=== PATIENT | female | born 2005 | race Two or more races ===

== ENCOUNTER 2024-08-16 06:29 | Inpatient (IN) | payer OTHER ==
[~2024-08-16] VITALS: Ht 160 cm; Wt 85.0 kg
--- NOTE | 2024-08-16 06:53 | ED.PDOC ---
GI ASSESSMENT HPI Comments 19 year old female presents to the ED with chief complaint of abdominal pain. Patient reports that she has been experiencing 10/10 diffuse abdominal pain since Wednesday with associated nausea and vomiting. Patient relays that she is unsure if it is from something she ate as she has not eaten well since last . Patient denies any diarrhea, fever, chills, chest pain, dizziness, or headache. Time Seen by MD: 06:53 Allergies: Coded Allergies: NO KNOWN ALLERGIES (Unverified , 08/16/24) Past Medical History PAST MEDICAL HISTORY: Denies Surgical History: Denies all surgeries CONSTRUCTION ECONOMIST History: No Pertinent CONSTRUCTION ECONOMIST History Family History Family History: Reviewed,noncontributory to illness Social History Smoker: Non-Smoker Alcohol: Denies ETOH Use Drugs: Denies Drug Use Lives In: Home Constitutional: denies: chills, diaphoresis, fatigue, fever, malaise, sweats, weakness, others EENTM: denies: blurred vision, double vision, ear bleeding, ear discharge, ear drainage, ear pain, ear ringing, eye pain, eye redness, hearing loss, mouth pain , mouth swelling, nasal discharge, nose bleeding, nose congestion, nose pain, photophobia, tearing, throat pain, throat swelling, voice changes, others Respiratory: denies: cough, hemoptysis, orthopnea, SOB at rest, shortness of breath, SOB with excertion, stridor, wheezing, others Cardiovascular: denies: chest pain, dizzy spells, diaphoresis, Dyspnea on exertion, edema, irregular heart beat, left arm pain, lightheadedness, palpitations, PND, syncope, others Gastrointestinal: reports: abdominal pain, nausea, vomiting; denies: abdomen distended, blood streaked bowels, constipated, diarrhea, dysphagia, difficulty swallowing, hematemesis, melena, poor appetite, poor fluid intake, rectal bleeding, rectal pain, others Genitourinary: denies: abnormal vagina bleeding, burning, dyspareunia, dysuria, flank pain, frequency, hematuria, incontinence, pain, , vagina discharge, urgency, others Neurological: denies: dizziness, fainting, headache, left sided numbness, left sided weakness, numbness, paresthesia, pre-existing deficit, right sided numbness, right sided weakness, seizure, speech problems, tingling, tremors, weakness, others Musculoskeletal: denies: back pain, gout, joint pain, joint swelling, muscle pain, muscle stiffness, neck pain, others Integumetry: denies: bruises, change in color, change in hair/nails, dryness, laceration, lesions, lumps, rash, wounds, others Allergic/Immunocompromised: denies: Difficulty Healing, Frequent Infections, Hives, Itching, others Hematologic/Lymphatic: denies: anemia, blood clots, easy bleeding, easy bruising, swollen glands, others Endocrine: denies: excessive hunger, excessive sweating, excessive thirst, excessive urination, flushing, intolerance to cold, intolerance to heat, unexplained weight gain, unexplained weight loss, others Psychiatric: denies: anxiety, bipolar disorder, depression, hopeless, panic disorder, schizophrenia, sleepless, suicidal, others All Other Systems: Reviewed and Negative Physical Exam General Appearance: Moderate Distress, Normal HEENT: Normal ENT Inspection, PERRL/EOMI Neck: Full Range of Motion, Non-Tender, Normal, Normal Inspection Respiratory: Chest Non-Tender, Lungs Clear, No Accessory Muscle Use, No Respiratory Distress, Normal Breath Sounds Cardiovascular: No Edema, No JVD, No Murmur, No Gallop, Normal Peripheral Pulses, Regular Rate/Rhythm Breast Exam: Deferred Gastrointestinal: No Organomegaly, No Pulsatile Mass, Normal Bowel Sounds, Soft Genitalia: Deferred Pelvic: Deferred Rectal: Deferred Extremities: No calf tenderness, Normal capillary refill, Normal inspection, Normal range of motion, Non-tender, No pedal edema Musculoskeletal : Apperance: Normal Neurologic: Alert, 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 Was a procedure done?: No GI differential Dx Differential Diagnosis: Constipation, Diverticular disease, Esophagitis, Gastritis/PUD, Gastroenteritis X-Ray, Labs, Meds, VS Vital Signs Date Time Temp Pulse Resp B/P (MAP) Pulse Ox O2 Delivery O2 Flow Rate FiO2 08/16/24 08:15 98.7 68 13 127/68 (87) 100 98.7 11/6/24 07:50 70 18 134/72 11/6/24 07:22 70 18 134/72 08/16/24 07:20 70 18 99 Room Air* 0 21 08/16/24 07:20 98.5 70 18 134/72 (92) 99 98.5 08/16/24 06:53 98.7 85 20 137/95 (109) 99 Lab Test 08/16/24 07:25 Range/Units Sodium Level 138 136-145 mmol/L Potassium Level 2.9 L 3.5-5.1 mmol/L Chloride Level 103 98-107 mmol/L Carbon Dioxide Level 24 20-31 mmol/L Anion Gap 11 5-15 Blood Urea Nitrogen 6 L 9-23 mg/dL Creatinine 0.84 0.550-1.02 mg/dL Glomerular Filtration Rate Calc 101 >90 mL/min BUN/Creatinine Ratio 7.1 L 10.0-20.0 Serum Glucose 81 74-106 mg/dL Calcium Level 9.8 8.7-10.4 mg/dL Total Bilirubin 1.2 H 0.2-1.0 mg/dL Aspartate Amino Transferase (AST) 15 13-40 U/L Alanine Aminotransferase (ALT) 17 7-40 U/L Alkaline Phosphatase 72 46-116 U/L Total Protein 8.4 H 5.7-8.2 g/dL Albumin 4.7 3.2-4.8 g/dL Current Medications Medications (Trade) Dose Ordered Sig/Kristin Route Start Time Stop Time Status Last Admin Ondansetron HCl (Zofran) 4 mg ONCE ONCE IV 08/16/24 07:15 08/16/24 07:16 DC 08/16/24 07:21 Sodium Chloride 1,000 ml @ 1,000 mls/hr Q1H ONCE IVB 08/16/24 07:15 08/16/24 08:14 DC 08/16/24 07:21 Morphine Sulfate 4 mg ONCE ONCE IV 08/16/24 07:15 08/16/24 07:16 DC 08/16/24 07:22 Potassium Chloride 100 ml @ 50 mls/hr ONCE ONCE IV 08/16/24 08:15 08/16/24 10:14 08/16/24 08:38 Patient alert. Complaining of abdominal pain. Vitals stable. Answering all questions. Establish intravenous access. Was given fluids. Was given pain medication. Potassium is low. Was given potassium. Reviewed her history. Explained to the patient. Continue cardiac monitoring. CT Abd/Pel: Findings: Lung Bases: No acute or significant lung base finding. Normal heart size. No pleural or pericardial effusion. Liver: The liver is normal in size. Focal low attenuating lesion at the falciform ligament compatible with focal fatty deposition. Gallbladder and Biliary Tree: Gallbladder contains hyperdense material likely related to contrast excretion from prior intravenous injection. No biliary ductal dilatation. Spleen: Unremarkable Pancreas: The pancreas is grossly normal in appearance. Adrenal Glands: Unremarkable Kidneys: Kidneys are grossly normal without calculi or hydronephrosis. GI Tract: The stomach is grossly normal in appearance. The small bowel is normal in caliber. There is wall thickening of the ascending colon. Normal caliber appendix. Peritoneal cavity: No pneumoperitoneum. No ascites. Lymphadenopathy: No mesenteric, retroperitoneal or periportal lymphadenopathy. Abdominal Wall and Mesentery: Unremarkable. Vasculature: The visualized abdominal aorta is normal in size and caliber. Evaluation of abdominal and pelvic vessels is limited due to lack of intravenous contrast. Pelvic Organs: Uterus and ovaries are unremarkable. Urinary Bladder: Grossly unremarkable for degree of distention. Musculoskeletal: No aggressive focal bony lesions, acute fractures or dislocation. Soft tissues: Unremarkable IMPRESSION: 1. Mild wall thickening of the ascending colon which may reflect colitis in the appropriate clinical setting. 2. Focal fatty deposition in the falciform ligament. Images Reviewed?: Images reviewed and evaluated by me Time of 1ST Reevaluation: 07:53 Reevaluation 1ST: Unchanged Patient Education/Counseling: Diagnosis, Treatment, Prognosis, Need For Follow Up Family Education/Counseling: No Family Present Departure 1 Departure Time of Disposition: 08:01 Impression: Primary Impression: Acute abdominal pain Additional Impressions: Gastroenteritis Hypokalemia Disposition: ADMITTED INPATIENT Admit to: Med Surg Condition: Guarded Critical Care Note Critical Care Time?: Yes (45 min-critical care time only) Stability Stability form required: No Heart Score Heart Score: Heart Score Response (Comments) Value History N/A 0 EKG N/A 0 Age N/A 0 Risk Factors N/A 0 Troponin N/A 0 Total 0 I personally scribed for HENRIETTA CINTRON MD ([email or web address]) on 08/16/24 at 06:53. Electronically submitted by Evin Javier ([email or web address]). I personally scribed for HENRIETTA CINTRON MD ([email or web address]) on 08/16/24 at 09:43. Electronically submitted by Evin Javier ([email or web address]). HENRIETTA CINTRON MD Aug 16, 2024 06:53
[2024-08-16 07:20] VITALS: PULSE 70; RESP 18; O2SAT 99
[2024-08-16] MEDS: ONDANSETRON HCL 4 MG/2 ML VIAL IV ONE (07:21)
[2024-08-16] MEDS: SODIUM CHLORIDE 0.9% 1,000 ML IVB ONE (07:21)
[2024-08-16] MEDS: MORPHINE SULFATE 4 MG/ML SYR/VIAL IV ONE (07:22)
[2024-08-16 07:51] LABS: Alanine Aminotransferase 17 U/L (7-40); Albumin 4.7 g/dL (3.2-4.8); Alkaline Phosphatase 72 U/L (46-116); Anion Gap 11 (5-15); Aspartate Aminotransferase 15 U/L (13-40); BUN/Creatinine Ratio 7.1 (10.0-20.0); Blood Urea Nitrogen 6 mg/dL (9-23); Calcium 9.8 mg/dL (8.7-10.4); Carbon Dioxide 24 mmol/L (20-31); Chloride 103 mmol/L (98-107); Glucose 81 mg/dL (74-106); Potassium 2.9 mmol/L (3.5-5.1); Sodium 138 mmol/L (136-145)
[2024-08-16 07:52] LABS: Bilirubin, Total 1.2 mg/dL (0.2-1.0); Total Protein 8.4 g/dL (5.7-8.2)
[2024-08-16] MEDS: POTASSIUM CHL 20MEQ/100ML 100 ML IV ONE (08:38)
--- NOTE | 2024-08-16 09:06 | DVH ---
Exam: CT CT AB PEL WO CON-NO ORAL OR IV History: Colitis Comparison Study: None available at time of dictation. TECHNIQUE: Multidetector CT of the abdomen and pelvis was performed from lung bases to ischial tubero sities. Imaging was performed without IV contrast using axial images. Coronal and sagittal reformats were obtained from the axial data set by the technologist. Radiation Dose Information: CT Dose: CTDI volume is 12.65 mGy. Dose-length product is 672.95 mGy*cm FINDINGS: Evaluation of solid organs is limited due to lack of intravenous contrast use. Findings: Lung Bases: No acute or significant lung base finding. Normal heart size. No pleural or pericardial effusion. Liver: The liver is normal in size. Focal low attenuating lesion at the falciform ligament compatibl e with focal fatty deposition. Gallbladder and Biliary Tree: Gallbladder contains hyperdense material likely related to contrast exc retion from prior intravenous injection. No biliary ductal dilatation. Spleen: Unremarkable Pancreas: The pancreas is grossly normal in appearance. Adrenal Glands: Unremarkable Kidneys: Kidneys are grossly normal without calculi or hydronephrosis. GI Tract: The stomach is grossly normal in appearance. The small bowel is normal in caliber. There is wall thickening of the ascending colon. Normal caliber appendix. Peritoneal cavity: No pneumoperitoneum. No ascites. Lymphadenopathy: No mesenteric, retroperitoneal or periportal lymphadenopathy. Abdominal Wall and Mesentery: Unremarkable. Vasculature: The visualized abdominal aorta is normal in size and caliber. Evaluation of abdominal a nd pelvic vessels is limited due to lack of intravenous contrast. Pelvic Organs: Uterus and ovaries are unremarkable. Urinary Bladder: Grossly unremarkable for degree of distention. Musculoskeletal: No aggressive focal bony lesions, acute fractures or dislocation. Soft tissues: Unremarkable IMPRESSION: 1. Mild wall thickening of the ascending colon which may reflect colitis in the appropriate clinical setting. 2. Focal fatty deposition in the falciform ligament. Radiation optimization: All CT scans at this facility use at least one of these dose optimization lisa hniques: automated exposure control mA and/or kV adjustment per patient size (includes targeted exam s where dose is matched to clinical indication) or iterative reconstruction.
[2024-08-16 12:06] LABS: Basophils # (auto) 0 10 ^3/uL (0-0.2); Basophils % (auto) 0.2 % (0.0-2.0); Eosinophils # (auto) 0 10 ^3/uL (0-0.8); Hematocrit 36.2 % (36.0-46.0); Hemoglobin 11.9 g/dL (12.2-16.2); Mean Corpuscular Hemoglobin 28.3 pg (28.0-32.0); Mean Corpuscular Hgb Conc. 32.8 g/dL (32.0-36.0); Mean Corpuscular Volume 86.3 fL (80.0-100.0); Monocytes # (auto) 0.5 10 ^3/uL (0-1.3); Monocytes % (auto) 4.3 % (0.0-12.0); Neutrophils # (auto) 10.8 10 ^3/uL (1.6-8.6); Neutrophils % (auto) 87.5 % (37.0-80.0); Platelet Count (auto) 243 10^3/uL (140-450); Red Cell Distribution Width 15.1 % (11.8-14.3); White Blood Cell 12.4 10^3/uL (4.4-10.8)
--- NOTE | 2024-08-16 12:08 | DVHHP2 ---
History of Present Illness Reason for Visit: Abdominal pain History of Present Illness Joanne Galvez is a 19-year-old female with no significant past medical history who comes in with complaints of abdominal pain. Patient states that her abdominal pain, with associated nausea and vomiting started on Wednesday08/12/2024. She has not been able to keep any food or fluids down since Wednesday. She went to [facility] on Wednesday, with no resolution, and then to urgent care on Wednesday with no resolution. Her Mom is bringing her in today because she continues to have the abdominal pain, nausea, and vomiting, she has not been able to get out of bed, or eat. Past Surgical History: None Family History: None Smoke: No ALCOHOL: rare Drugs: Marijuana Lives: with Family Domestic Violence: Neg Review of Systems Constitutional: No: Fever, Chills, Sweats, Weakness, Malaise, Other Eyes: No: Pain, Vision change, Conjunctivae inflammation, Eyelid inflammation, Other, Redness ENT: No: Ear pain, Ear discharge, Nose pain, Nose discharge, Nose congestion, Mouth pain, Mouth swelling, Throat pain, Throat swelling, Other Respiratory: No: Cough, Dry, Shortness of breath, SOB with excertion, Wheezing, Hemoptysis, Pleuritic Pain, Sputum, Wheezing, Other Cardiovascular: No: Chest Pain, Palpitations, Orthopnea, Paroxysmal Noc. Dyspnea, Edema, Lt Headedness, Other Gastrointestinal: Nausea, Vomiting, Abdominal Pain; No: Diarrhea, Constipation, Melena, Hematochezia, Other Musculoskeletal: No: other, neck pain, shoulder pain, arm pain, back pain, hand pain, leg pain, foot pain Skin: No: Rash, Lesions, Jaundice, Bruising, Other Neurological: No: Weakness, Numbness, Incoordination, Change in speech, Confu gonzalez, Seizures, Other Allergies: Coded Allergies: NO KNOWN ALLERGIES (Unverified , 08/16/24) Exam Vital Signs Vital Signs Date Time Temp Pulse Resp B/P (MAP) Pulse Ox O2 Delivery O2 Flow Rate FiO2 08/16/24 10:00 71 20 132/61 (84) 100 08/16/24 08:15 98.7 98.7 08/16/24 07:20 Room Air* 0 21 General Appearance: Alert, Oriented X3, mild distress Respiratory: Clear to auscultation, Normal air movement Cardiovascular: Regular rate, Normal S1, Normal S2, No murmurs Abdominal: Other (Diffuse abdominal pain, nausea, and vomiting) Extremities: No clubbing, No cyanosis, No edema Skin: No rashes, No breakdown, No significant lesion Neuro: Normal gait, Normal speech, Strength at 5/5 X4 ext Psych/Mental Status: Mental status NL, Mood NL Labs/Xrays Labs Test 08/16/24 11:47 08/16/24 10:09 08/16/24 07:25 Range/Units Sodium Level 138 136-145 mmol/L Potassium Level 2.9 L 3.5-5.1 mmol/L Chloride Level 103 98-107 mmol/L Carbon Dioxide Level 24 20-31 mmol/L Anion Gap 11 5-15 Blood Urea Nitrogen 6 L 9-23 mg/dL Creatinine 0.84 0.550-1.02 mg/dL Glomerular Filtration Rate Calc 101 >90 mL/min BUN/Creatinine Ratio 7.1 L 10.0-20.0 Serum Glucose 81 74-106 mg/dL Calcium Level 9.8 8.7-10.4 mg/dL Total Bilirubin 1.2 H 0.2-1.0 mg/dL Aspartate Amino Transferase (AST) 15 13-40 U/L Alanine Aminotransferase (ALT) 17 7-40 U/L Alkaline Phosphatase 72 46-116 U/L Total Protein 8.4 H 5.7-8.2 g/dL Albumin 4.7 3.2-4.8 g/dL Exam: CT CT AB PEL WO CON-NO ORAL OR IV FINDINGS: Evaluation of solid organs is limited due to lack of intravenous contrast use. Findings: Lung Bases: No acute or significant lung base finding. Normal heart size. No pleural or pericardial effusion. Liver: The liver is normal in size. Focal low attenuating lesion at the falciform ligament compatible with focal fatty deposition. Gallbladder and Biliary Tree: Gallbladder contains hyperdense material likely related to contrast excretion from prior intravenous injection. No biliary ductal dilatation. Spleen: Unremarkable Pancreas: The pancreas is grossly normal in appearance. Adrenal Glands: Unremarkable Kidneys: Kidneys are grossly normal without calculi or hydronephrosis. GI Tract: The stomach is grossly normal in appearance. The small bowel is normal in caliber. There is wall thickening of the ascending colon. Normal caliber nitesh endix. Peritoneal cavity: No pneumoperitoneum. No ascites. Lymphadenopathy: No mesenteric, retroperitoneal or periportal lymphadenopathy. Abdominal Wall and Mesentery: Unremarkable. Vasculature: The visualized abdominal aorta is normal in size and caliber. Evaluation of abdominal and pelvic vessels is limited due to lack of intravenous contrast. Pelvic Organs: Uterus and ovaries are unremarkable. Urinary Bladder: Grossly unremarkable for degree of distention. Musculoskeletal: No aggressive focal bony lesions, acute fractures or dislocation. Soft tissues: Unremarkable IMPRESSION: 1. Mild wall thickening of the ascending colon which may reflect colitis in the appropriate clinical setting. 2. Focal fatty deposition in the falciform ligament. Assessment/Plan Assessment/Plan Assessment: Dehydration, severe, UTI, Gastritis, Hypokalemia, Possible colitis, Plan: Admit to Med-Surg, IV antibiotics, IV hydration, Manage/Monitor electrolytes, Consider GI consult if symptoms do not improve, Plan discussed with: Patient My Orders Orders - LOUISE PATEL Procedure Category Date Status Time Complete Blood Count LAB 08/16/24 In Process 10:38 Admit ADMIT 08/16/24 Verified 11:55 Code Status CODE 08/16/24 Verified 11:55 0.9% Ns 1000 Ml PHA 08/16/24 Verified 12:00 Hydrocodone-Acet PHA 08/16/24 Verified 5/325mg Tab (Roby 12:00 Ondansetron Hcl PHA 08/16/24 Verified (Zofran) 12:00 Complete Blood Count LAB 08/17/24 Verified 04:00 Comprehensive LAB 08/17/24 Verified Metabolic Panel 04:00 Condition: Serious SAMIRA 08/16/24 Verified 11:55 Acetaminophen Tablet PHA 08/16/24 Verified (Tylenol Tablet) 12:00 Clear Liq Diet DIET 08/16/24 Verified Lunch Magnesium LAB 08/16/24 Verified 11:55 Potassium LAB 08/16/24 Verified 11:55 Date of Service: Aug 16, 2024 Billing Provider: LOUISE PATEL Common Visit Codes: [id number] INP/OBS CARE (MOD) LOUISE PATEL Aug 16, 2024 12:08
[2024-08-16] MEDS: SODIUM CHLORIDE 0.9% 1,000 ML IV SCH (12:28)
[2024-08-16 12:46] LABS: Potassium 3.8 mmol/L (3.5-5.1)
[2024-08-16 16:11] VITALS: BP 108/69; PULSE 76; RESP 20; TEMP 98.4; O2SAT 100
[2024-08-16 16:26] LABS: Urine Bacteria FEW /hpf (None Seen); Urine Blood 2+ /uL (Negative); Urine Clarity Turbid (Clear); Urine Color Yellow (Yellow); Urine Mucus FEW (None Seen); Urine Protein, UAD TRACE (Negative); Urine Specific Gravity 1.022 (1.001-1.035); Urine Urobilinogen 2 mg/dL (Negative); Urine WBC 5 /hpf (0 - 5); Urine pH 6.5 (5.0-9.0)
[2024-08-16 16:57] VITALS: BP 124/56; PULSE 72; RESP 18; TEMP 97.9; O2SAT 99
[2024-08-16 20:00] VITALS: PULSE 81; RESP 18; O2SAT 90
[2024-08-16] MEDS: cefTRIAXone 1GM/50ML D5W 50 ML IV ONE (20:35)
[2024-08-16 20:38] VITALS: BP 125/68; PULSE 81; RESP 18; TEMP 97.9; O2SAT 90
[2024-08-16] MEDS: MAGNESIUM SULFATE 1GM/100ML 100 ML IV SCH (21:54)
[2024-08-16] MEDS: metroNIDAZOLE 500MG/100ML 100 ML IV SCH (23:30)
[2024-08-17] VITALS (7 sets, daily range): BP systolic 108–138; BP diastolic 54–83; PULSE 61–79; RESP 16–20; TEMP 97.3–98.8; O2SAT 97–99
[2024-08-17] MEDS: ONDANSETRON HCL 4 MG/2 ML VIAL IV PRN (04:59)
[2024-08-17] MEDS: METOCLOPRAMIDE HCL 5MG/ml INJ 2ml VIAL IV PRN (05:39)
[2024-08-17 06:00] LABS: Basophils # (auto) 0 10 ^3/uL (0-0.2); Basophils % (auto) 0.3 % (0.0-2.0); Eosinophils # (auto) 0.1 10 ^3/uL (0-0.8); Eosinophils % (auto) 0.7 % (0.0-7.0); Hematocrit 38.2 % (36.0-46.0); Hemoglobin 12.5 g/dL (12.2-16.2); Lymphocytes % (auto) 20.6 % (10.0-50.0); Mean Corpuscular Hemoglobin 28.7 pg (28.0-32.0); Mean Corpuscular Hgb Conc. 32.9 g/dL (32.0-36.0); Mean Corpuscular Volume 87.3 fL (80.0-100.0); Monocytes # (auto) 0.8 10 ^3/uL (0-1.3); Monocytes % (auto) 8.7 % (0.0-12.0); Neutrophils # (auto) 6.8 10 ^3/uL (1.6-8.6); Neutrophils % (auto) 69.7 % (37.0-80.0); Nucleated Red Blood Cells % 0.1 %; Platelet Count (auto) 244 10^3/uL (140-450); Red Blood Cells 4.37 10^6/uL (4.0-5.20); Red Cell Distribution Width 14.7 % (11.8-14.3); White Blood Cell 9.7 10^3/uL (4.4-10.8)
[2024-08-17 06:13] LABS: Alanine Aminotransferase 13 U/L (7-40); Albumin 4.4 g/dL (3.2-4.8); Alkaline Phosphatase 64 U/L (46-116); Anion Gap 10 (5-15); Aspartate Aminotransferase 14 U/L (13-40); Calcium 9.2 mg/dL (8.7-10.4); Carbon Dioxide 25 mmol/L (20-31); Chloride 105 mmol/L (98-107); Glucose 75 mg/dL (74-106); Potassium 2.9 mmol/L (3.5-5.1); Sodium 140 mmol/L (136-145)
[2024-08-17 06:14] LABS: Bilirubin, Total 1.1 mg/dL (0.2-1.0); Total Protein 7.4 g/dL (5.7-8.2)
[2024-08-17 06:15] LABS: BUN/Creatinine Ratio 6.4 (10.0-20.0); Blood Urea Nitrogen < 5 mg/dL (9-23)
[2024-08-17] MEDS: HYDROcodone-ACET 5/325MG TAB PO PRN (06:16)
[2024-08-17] MEDS: cefTRIAXone 1GM/50ML D5W 50 ML IV SCH (10:10)
--- NOTE | 2024-08-17 11:20 | DVHPN2 ---
Subjective The patient is seen and examined at bedside. Still complaint of abdominal pain. Patient is still vomiting five times overnight and could not keep anything down. Reviewed: Care Plan, H&P, Labs, Medications, Previous Orders, Radiology Changes from previous H/P or p: No Changes Eyes: No Pain, No Vision change, No Conjunctivae inflammation, No Eyelid inflammation, No Other, No Redness ENT: No Ear pain, No Ear discharge, No Nose pain, No Nose discharge, No Nose congestion, No Mouth pain, No Mouth swelling, No Throat pain, No Throat swelling, No Other Cardiovascular: No Chest Pain, No Palpitations, No Orthopnea, No Paroxysmal Noc. Dyspnea, No Edema, No Lt Headedness, No Other Respiratory: No Cough, No Dry, No Shortness of breath, No SOB with excertion, No Wheezing, No Hemoptysis, No Pleuritic Pain, No Sputum, No Other Gastrointestinal: Nausea, Vomiting, Abdominal Pain; No Diarrhea, No Constipation, No Melena, No Hematochezia, No Other Musculoskeletal: No other, No neck pain, No shoulder pain, No arm pain, No back pain, No hand pain, No leg pain, No foot pain Skin: No Rash, No Lesions, No Jaundice, No Bruising, No Other Objective Vitals Vital Signs Date Time Temp Pulse Resp B/P (MAP) Pulse Ox O2 Delivery O2 Flow Rate FiO2 08/17/24 09:00 98.4 79 20 129/59 (82) 99 98.4 08/16/24 20:00 Room Air* 0 21 Intake/Output Intake and Output 08/17/24 07:00 Intake Total 2650 ml Balance 2650 ml Intake Oral 1200 ml IV Total 1450 ml # Voids 4 General Appearance: Alert, Oriented X3, Cooperative, No acute distress HEENT: Atraumatic, PERRLA, EOMI, Mucous membr. moist/pink Neck: Supple Lungs: Clear to auscultation, Normal air movement Cardiovascular: Regular rate, Normal S1, Normal S2, No murmurs, Gallops, Rubs Abdomen: Normal bowel sounds, Soft, No tenderness Neuro: Cranial nerves 3-12 NL Psych/Mental Status: Mental status NL Medications Current Medications Medications Dose Ordered Sig/Kristin Route Start Time Stop Time Status Last Admin Dose Admin Sodium Chloride 1,000 ml @ 100 mls/hr Q10H IV 08/16/24 12:00 08/17/24 10:14 100 MLS/HR Acetaminophen/ Hydrocodone Bitart 1 tab Q4HP PRN PO 08/16/24 12:00 08/17/24 06:16 1 TAB Ondansetron HCl 4 mg Q4HP PRN IV 08/16/24 12:00 08/17/24 04:59 4 MG Acetaminophen 650 mg Q6HP PRN PO 08/16/24 12:00 Metoclopramide HCl 10 mg Q6HPRN PRN IV 08/16/24 19:15 08/17/24 05:39 10 MG Metronidazole 100 ml @ 100 mls/hr Q8HR IV 08/16/24 22:00 08/17/24 06:17 100 MLS/HR Ceftriaxone Sodium 50 ml @ 100 mls/hr DAILY@09 IV 08/17/24 09:00 08/17/24 10:10 100 MLS/HR Laboratory Results Laboratory Tests 08/17/24 05:23 Chemistry Test 08/16/24 11:47 08/17/24 05:23 Magnesium Level 2.0 mg/dL (1.6-2.6) Albumin 4.4 g/dL (3.2-4.8) Calcium Level 9.2 mg/dL (8.7-10.4) Total Protein 7.4 g/dL (5.7-8.2) LFT Test 08/17/24 05:23 Alanine Aminotransferase (ALT) 13 U/L (7-40) Alkaline Phosphatase 64 U/L (46-116) Aspartate Amino Transferase (AST) 14 U/L (13-40) Total Bilirubin 1.1 mg/dL (0.2-1.0) H Urinalysis Test 08/16/24 15:39 Urine Color Yellow (Yellow) Urine Clarity Turbid (Clear) H Urine pH 6.5 (5.0-9.0) Urine Specific [place] 1.022 (1.001-1.035) Urine Protein Trace (Negative) H Urine Ketones 4+ (Negative) H Urine Blood 2+ /uL (Negative) H Urine Nitrite Negative (Negative) Urine Bilirubin Negative (Negative) Urine Urobilinogen 2 mg/dL (Negative) H Urine Leukocyte Esterase Negative /uL (Negative) Urine RBC 4 /hpf (0 - 4) Urine WBC 5 /hpf (0 - 5) Urine Squamous Epithelial Cells Few /hpf (<5) Urine Bacteria Few /hpf (None Seen) H Urine Mucus Few (None Seen) Urine Glucose Normal mg/dL (Normal) Labs and/or images reviewed: Labs reviewed by me Assessment/Plan Assessment/Plan Dehydration, severe, UTI, Gastritis, Hypokalemia, Possible colitis Intractable nausea and vomiting Marijuana abuse Continuing current management. Continuing with IV antibiotic. Continuing with IV Zofran p.r.n. for nausea or vomiting. Advised patient to stop smoking marijuana in use marijuana because his can cause cyclic vomiting. Suspect patient had cyclic vomiting with severe dehydration due to vomitus. We will replace potassium as needed. Waiting for GI specialist to see the patient. Plan discussed with: Patient, Other (mother) Date of Service: Aug 17, 2024 Billing Provider: ROSSY GILMAN MD Common Visit Codes: [id number] INP/OBS CARE(HIGH) ROSSY GILMAN MD Aug 17, 2024 11:20
[2024-08-17] MEDS ORDERED: POTASSIUM CHL 20 Meq TABLET PO ONE (13:30)
[2024-08-17] MEDS: POTASSIUM CHL 20 Meq TABLET PO SCH (15:13)
[2024-08-18] VITALS (7 sets, daily range): BP systolic 107–168; BP diastolic 57–81; PULSE 70–88; RESP 17–20; TEMP 98–100.2; O2SAT 84–100
--- NOTE | 2024-08-18 12:03 | DVHPN2 ---
Subjective The patient is seen and examined at bedside. Still nausea and vomiting but less vomitus done yesterday and able to keep clear liquid diet down Reviewed: Care Plan, H&P, Labs, Medications, Previous Orders, Radiology Changes from previous H/P or p: No Changes Eyes: No Pain, No Vision change, No Conjunctivae inflammation, No Eyelid inflammation, No Other, No Redness ENT: No Ear pain, No Ear discharge, No Nose pain, No Nose discharge, No Nose congestion, No Mouth pain, No Mouth swelling, No Throat pain, No Throat swelling, No Other Cardiovascular: No Chest Pain, No Palpitations, No Orthopnea, No Paroxysmal Noc. Dyspnea, No Edema, No Lt Headedness, No Other Respiratory: No Cough, No Dry, No Shortness of breath, No SOB with excertion, No Wheezing, No Hemoptysis, No Pleuritic Pain, No Sputum, No Other Gastrointestinal: Nausea, Vomiting, Abdominal Pain; No Diarrhea, No Constipation, No Melena, No Hematochezia, No Other Musculoskeletal: No other, No neck pain, No shoulder pain, No arm pain, No back pain, No hand pain, No leg pain, No foot pain Skin: No Rash, No Lesions, No Jaundice, No Bruising, No Other Objective Vitals Vital Signs Date Time Temp Pulse Resp B/P (MAP) Pulse Ox O2 Delivery O2 Flow Rate FiO2 08/18/24 09:00 98.0 88 20 107/59 (75) 99 98.0 08/18/24 07:30 Room Air* 0 21 Intake/Output Intake and Output 08/18/24 07:00 Intake Total 3200 ml Balance 3200 ml Intake Oral 1700 ml IV Total 1500 ml # Voids 8 General Appearance: Alert, Oriented X3, Cooperative, No acute distress HEENT: Atraumatic, PERRLA, EOMI, Mucous membr. moist/pink Neck: Supple Lungs: Clear to auscultation, Normal air movement Cardiovascular: Regular rate, Normal S1, Normal S2, No murmurs, Gallops, Rubs Abdomen: Normal bowel sounds, Soft, No tenderness Neuro: Cranial nerves 3-12 NL Psych/Mental Status: Mental status NL Medications Current Medications Medications Dose Ordered Sig/Kristin Route Start Time Stop Time Status Last Admin Dose Admin Sodium Chloride 1,000 ml @ 100 mls/hr Q10H IV 08/16/24 12:00 08/18/24 03:30 100 MLS/HR Acetaminophen/ Hydrocodone Bitart 1 tab Q4HP PRN PO 08/16/24 12:00 08/18/24 02:43 1 TAB Ondansetron HCl 4 mg Q4HP PRN IV 08/16/24 12:00 08/18/24 09:13 4 MG Acetaminophen 650 mg Q6HP PRN PO 08/16/24 12:00 Metoclopramide HCl 10 mg Q6HPRN PRN IV 08/16/24 19:15 08/18/24 06:56 10 MG Metronidazole 100 ml @ 100 mls/hr Q8HR IV 08/16/24 22:00 08/18/24 05:52 100 MLS/HR Ceftriaxone Sodium 50 ml @ 100 mls/hr DAILY@09 IV 08/17/24 09:00 08/18/24 08:54 100 MLS/HR Laboratory Results Laboratory Tests 08/17/24 05:23 Urinalysis Test 08/16/24 15:39 Urine Color Yellow (Yellow) Urine Clarity Turbid (Clear) H Urine pH 6.5 (5.0-9.0) Urine Specific [place] 1.022 (1.001-1.035) Urine Protein Trace (Negative) H Urine Ketones 4+ (Negative) H Urine Blood 2+ /uL (Negative) H Urine Nitrite Negative (Negative) Urine Bilirubin Negative (Negative) Urine Urobilinogen 2 mg/dL (Negative) H Urine Leukocyte Esterase Negative /uL (Negative) Urine RBC 4 /hpf (0 - 4) Urine WBC 5 /hpf (0 - 5) Urine Squamous Epithelial Cells Few /hpf (<5) Urine Bacteria Few /hpf (None Seen) H Urine Mucus Few (None Seen) Urine Glucose Normal mg/dL (Normal) Labs and/or images reviewed: Labs reviewed by me Assessment/Plan Assessment/Plan Dehydration, severe, UTI rule out, Gastritis, Hypokalemia, Possible colitis Intractable nausea and vomiting Marijuana abuse Continuing current management. Continuing with IV Zofran. Continuing with IV antibiotic. Advised the patient to stop using marijuana due to cyclic vomiting. Continuing rehydrate the patient. Hopefully the vomitus is improved. Replace electrolytes as needed. GI specialist input appreciated. Discharge planning. Plan discussed with: Patient Date of Service: Aug 18, 2024 Billing Provider: ROSSY GILMAN MD Common Visit Codes: [id number] INP/OBS CARE(HIGH) ROSSY GILMAN MD Aug 18, 2024 12:03
--- NOTE | 2024-08-18 18:11 | DVHINCON2 ---
Date of service: Aug 18, [address] Lauren Reason for Consultation N/V History of Present Illness Joanne Galvez is a 19-year-old female with no significant past medical history who comes in with complaints of abdominal pain. Patient states that her abdominal pain, with associated nausea and vomiting started on Wednesday08/12/2024. She has not been able to keep any food or fluids down since . She went to [facility] on Wednesday, with no resolution, and then to urgent care on Wednesday with no resolution. Her Mom is bringing her in today because she continues to have the abdominal pain, nausea, and vomiting, she has not been able to get out of bed, or eat. Patient uses marijuana fairly regularly. She had no prior similar episode or admissions. She has not had any prior endoscopy. Patient is still nauseous requiring Reglan IV every 6 hours. Patient has been able to tolerate some clear liquids Family History: Arthritis G8 MOTHER Diabetes mellitus G8 BROTHER Allergies: Coded Allergies: NO KNOWN ALLERGIES (Unverified , 08/16/24) Current Medications Current Medications Medications (Trade) Dose Ordered Sig/Kristin Route PRN Reason Start Time Stop Time Status Last Admin Pantoprazole Sodium (Protonix) 40 mg BID IV 08/18/24 22:00 Vital Signs Vital Signs Date Time Temp Pulse Resp B/P (MAP) Pulse Ox O2 Delivery O2 Flow Rate FiO2 08/18/24 16:40 98.7 80 18 109/57 (74) 99 98.7 08/18/24 07:30 Room Air* 0 21 Physical Exam General Appearance: Alert, Oriented X3, no distress Respiratory: Clear to auscultation, Normal air movement Cardiovascular: Regular rate, Normal S1, Normal S2, No murmurs Abdominal: Other (Diffuse abdominal pain, nausea, and vomiting) Extremities: No clubbing, No cyanosis, No edema Skin: No rashes, No breakdown, No significant lesion Neuro: Normal gait, Normal speech, Strength at 5/5 X4 ext Psych/Mental Status: Mental status NL, Mood NL Labs/Diagnostic Data Labs Test 08/17/24 05:23 08/16/24 15:39 08/16/24 11:47 Range/Units White Blood Count 9.7 4.4-10.8 10^3/uL Red Blood Count 4.37 4.0-5.20 10^6/uL Hemoglobin 12.5 12.2-16.2 g/dL Hematocrit 38.2 36.0-46.0 % Mean Corpuscular Volume 87.3 80.0-100.0 fL Mean Corpuscular Hemoglobin 28.7 28.0-32.0 pg Mean Corpuscular Hemoglobin Concent 32.9 32.0-36.0 g/dL Red Cell Distribution Width 14.7 H 11.8-14.3 % Platelet Count 244 140-450 10^3/uL Mean Platelet Volume 9.0 6.9-10.8 fL Neutrophils (%) (Auto) 69.7 37.0-80.0 % Lymphocytes (%) (Auto) 20.6 10.0-50.0 % Monocytes (%) (Auto) 8.7 0.0-12.0 % Eosinophils (%) (Auto) 0.7 0.0-7.0 % Basophils (%) (Auto) 0.3 0.0-2.0 % Neutrophils # (Auto) 6.8 1.6-8.6 10 ^3/uL Lymphocytes # (Auto) 2.0 0.4-5.4 10 ^3/uL Monocytes # (Auto) 0.8 0-1.3 10 ^3/uL Eosinophils # (Auto) 0.1 0-0.8 10 ^3/uL Basophils # (Auto) 0 0-0.2 10 ^3/uL Nucleated Red Blood Cells 0.1 % Sodium Level 140 136-145 mmol/L Potassium Level 2.9 L 3.5-5.1 mmol/L Chloride Level 105 98-107 mmol/L Carbon Dioxide Level 25 20-31 mmol/L Anion Gap 10 5-15 Blood Urea Nitrogen < 5 L 9-23 mg/dL Creatinine 0.78 0.550-1.02 mg/dL Glomerular Filtration Rate Calc 111 >90 mL/min BUN/Creatinine Ratio 6.4 L 10.0-20.0 Serum Glucose 75 74-106 mg/dL Calcium Level 9.2 8.7-10.4 mg/dL Total Bilirubin 1.1 H 0.2-1.0 mg/dL Aspartate Amino Transferase (AST) 14 13-40 U/L Alanine Aminotransferase (ALT) 13 7-40 U/L Alkaline Phosphatase 64 46-116 U/L Total Protein 7.4 5.7-8.2 g/dL Albumin 4.4 3.2-4.8 g/dL Urine Color Yellow Yellow Urine Clarity Turbid H Clear Urine pH 6.5 5.0-9.0 Urine Specific [place] 1.022 1.001-1.035 Urine Protein Trace H Negative Urine Ketones 4+ H Negative Urine Blood 2+ H Negative /uL Urine Nitrite Negative Negative Urine Bilirubin Negative Negative Urine Urobilinogen 2 H Negative mg/dL Urine Leukocyte Esterase Negative Negative /uL Urine RBC 4 0 - 4 /hpf Urine WBC 5 0 - 5 /hpf Urine Squamous Epithelial Cells Few <5 /hpf Urine Bacteria Few H None Seen /hpf Urine Mucus Few None Seen Urine Glucose Normal Normal mg/dL Magnesium Level 2.0 1.6-2.6 mg/dL Abd CT IMPRESSION: 1. Mild wall thickening of the ascending colon which may reflect colitis in the appropriate clinical setting. 2. Focal fatty deposition in the falciform ligament. 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
[2024-08-18 20:07] LABS: Chloride 103 mmol/L (98-107); Potassium 3.6 mmol/L (3.5-5.1); Sodium 138 mmol/L (136-145)
[2024-08-18 20:08] LABS: Anion Gap 9 (5-15); Calcium 9.3 mg/dL (8.7-10.4); Carbon Dioxide 26 mmol/L (20-31)
[2024-08-18 20:13] LABS: Glucose 80 mg/dL (74-106)
[2024-08-18 20:56] LABS: BUN/Creatinine Ratio 6.7 (10.0-20.0); Blood Urea Nitrogen < 5 mg/dL (9-23)
[2024-08-18] MEDS: PANTOPRAZOLE 40 MG/10 ML VIAL INJ IV SCH (21:21)
[2024-08-18] MEDS: ACETAMINOPHEN 325 MG TAB PO PRN (21:32)
[2024-08-19 01:00] VITALS: BP 129/82; PULSE 79; RESP 18; TEMP 97.5; O2SAT 96
[2024-08-19 05:00] VITALS: BP_SYST 121; BP_SYST 179; BP_DIAS 64; PULSE 76; PULSE 99; RESP 17; RESP 18; TEMP 98.2; O2SAT 95; O2SAT 97
[2024-08-19 09:00] VITALS: BP 114/53; PULSE 81; RESP 17; TEMP 98.4; O2SAT 98
[2024-08-19 13:00] VITALS: BP 116/74; PULSE 94; RESP 18; TEMP 98.3; O2SAT 99
--- NOTE | 2024-08-19 14:31 | DVHPN2 ---
Eyes: No Pain, No Vision change, No Conjunctivae inflammation, No Eyelid inflammation, No Other, No Redness ENT: No Ear pain, No Ear discharge, No Nose pain, No Nose discharge, No Nose congestion, No Mouth pain, No Mouth swelling, No Throat pain, No Throat swelling, No Other Cardiovascular: No Chest Pain, No Palpitations, No Orthopnea, No Paroxysmal Noc. Dyspnea, No Edema, No Lt Headedness, No Other Respiratory: No Cough, No Dry, No Shortness of breath, No SOB with excertion, No Wheezing, No Hemoptysis, No Pleuritic Pain, No Sputum, No Other Gastrointestinal: Nausea, Vomiting, Abdominal Pain; No Diarrhea, No Constipation, No Melena, No Hematochezia, No Other Musculoskeletal: No other, No neck pain, No shoulder pain, No arm pain, No back pain, No hand pain, No leg pain, No foot pain Skin: No Rash, No Lesions, No Jaundice, No Bruising, No Other Objective Vitals Vital Signs Date Time Temp Pulse Resp B/P (MAP) Pulse Ox O2 Delivery O2 Flow Rate FiO2 08/19/24 13:00 98.3 94 18 116/74 (88) 99 98.3 08/19/24 07:40 Room Air* 0 21 Intake/Output Intake and Output 08/19/24 07:00 Intake Total 3300 ml Balance 3300 ml Intake Oral 2050 ml IV Total 1250 ml # Voids 6 # Bowel Movements 1 Medications Current Medications Medications Dose Ordered Sig/Kristin Route Start Time Stop Time Status Last Admin Dose Admin Sodium Chloride 1,000 ml @ 100 mls/hr Q10H IV 08/16/24 12:00 08/19/24 06:53 100 MLS/HR Acetaminophen/ Hydrocodone Bitart 1 tab Q4HP PRN PO 08/16/24 12:00 08/19/24 01:57 1 TAB Ondansetron HCl 4 mg Q4HP PRN IV 08/16/24 12:00 08/19/24 01:09 4 MG Acetaminophen 650 mg Q6HP PRN PO 08/16/24 12:00 08/18/24 21:32 650 MG Metoclopramide HCl 10 mg Q6HPRN PRN IV 08/16/24 19:15 08/19/24 09:09 10 MG Metronidazole 100 ml @ 100 mls/hr Q8HR IV 08/16/24 22:00 08/19/24 05:49 100 MLS/HR Ceftriaxone Sodium 50 ml @ 100 mls/hr DAILY@09 IV 08/17/24 09:00 08/19/24 09:02 100 MLS/HR Pantoprazole Sodium 40 mg BID IV 08/18/24 22:00 08/19/24 09:05 40 MG Laboratory Results Laboratory Tests 08/17/24 05:23 08/18/24 19:38 Chemistry Test 08/18/24 19:38 Calcium Level 9.3 mg/dL (8.7-10.4) Urinalysis Test 08/16/24 15:39 Urine Color Yellow (Yellow) Urine Clarity Turbid (Clear) H Urine pH 6.5 (5.0-9.0) Urine Specific [place] 1.022 (1.001-1.035) Urine Protein Trace (Negative) H Urine Ketones 4+ (Negative) H Urine Blood 2+ /uL (Negative) H Urine Nitrite Negative (Negative) Urine Bilirubin Negative (Negative) Urine Urobilinogen 2 mg/dL (Negative) H Urine Leukocyte Esterase Negative /uL (Negative) Urine RBC 4 /hpf (0 - 4) Urine WBC 5 /hpf (0 - 5) Urine Squamous Epithelial Cells Few /hpf (<5) Urine Bacteria Few /hpf (None Seen) H Urine Mucus Few (None Seen) Urine Glucose Normal mg/dL (Normal) ROSSY GILMAN MD Aug 19, 2024 14:31
--- NOTE | 2024-08-19 14:33 | DVHDS2 ---
Discharge Summary Date of Admission Aug 16, 2024 at 11:55 Date of Discharge: Aug 19, 2024 Admitting Diagnosis Dehydration, severe, UTI, Gastritis, Hypokalemia, Possible colitis Labs/Diagnostic Data: Laboratory Results Test 08/18/24 19:38 08/17/24 05:23 08/16/24 15:39 08/16/24 11:47 Sodium Level 138 mmol/L (136-145) Potassium Level 3.6 mmol/L (3.5-5.1) Chloride Level 103 mmol/L (98-107) Carbon Dioxide Level 26 mmol/L (20-31) Anion Gap 9 (5-15) Blood Urea Nitrogen < 5 mg/dL (9-23) Creatinine 0.75 mg/dL (0.550-1.02) Glomerular Filtration Rate Calc 116 mL/min (>90) BUN/Creatinine Ratio 6.7 (10.0-20.0) Serum Glucose 80 mg/dL (74-106) Calcium Level 9.3 mg/dL (8.7-10.4) White Blood Count 9.7 10^3/uL (4.4-10.8) Red Blood Count 4.37 10^6/uL (4.0-5.20) Hemoglobin 12.5 g/dL (12.2-16.2) Hematocrit 38.2 % (36.0-46.0) Mean Corpuscular Volume 87.3 fL (80.0-100.0) Mean Corpuscular Hemoglobin 28.7 pg (28.0-32.0) Mean Corpuscular Hemoglobin Concent 32.9 g/dL (32.0-36.0) Red Cell Distribution Width 14.7 % (11.8-14.3) Platelet Count 244 10^3/uL (140-450) Mean Platelet Volume 9.0 fL (6.9-10.8) Neutrophils (%) (Auto) 69.7 % (37.0-80.0) Lymphocytes (%) (Auto) 20.6 % (10.0-50.0) Monocytes (%) (Auto) 8.7 % (0.0-12.0) Eosinophils (%) (Auto) 0.7 % (0.0-7.0) Basophils (%) (Auto) 0.3 % (0.0-2.0) Neutrophils # (Auto) 6.8 10 ^3/uL (1.6-8.6) Lymphocytes # (Auto) 2.0 10 ^3/uL (0.4-5.4) Monocytes # (Auto) 0.8 10 ^3/uL (0-1.3) Eosinophils # (Auto) 0.1 10 ^3/uL (0-0.8) Basophils # (Auto) 0 10 ^3/uL (0-0.2) Nucleated Red Blood Cells 0.1 % Total Bilirubin 1.1 mg/dL (0.2-1.0) Aspartate Amino Transferase (AST) 14 U/L (13-40) Alanine Aminotransferase (ALT) 13 U/L (7-40) Alkaline Phosphatase 64 U/L (46-116) Total Protein 7.4 g/dL (5.7-8.2) Albumin 4.4 g/dL (3.2-4.8) Urine Color Yellow (Yellow) Urine Clarity Turbid (Clear) Urine pH 6.5 (5.0-9.0) Urine Specific [place] 1.022 (1.001-1.035) Urine Protein Trace (Negative) Urine Ketones 4+ (Negative) Urine Blood 2+ /uL (Negative) Urine Nitrite Negative (Negative) Urine Bilirubin Negative (Negative) Urine Urobilinogen 2 mg/dL (Negative) Urine Leukocyte Esterase Negative /uL (Negative) Urine RBC 4 /hpf (0 - 4) Urine WBC 5 /hpf (0 - 5) Urine Squamous Epithelial Cells Few /hpf (<5) Urine Bacteria Few /hpf (None Seen) Urine Mucus Few (None Seen) Urine Glucose Normal mg/dL (Normal) Magnesium Level 2.0 mg/dL (1.6-2.6) Other Laboratory Tests 08/18/24 19:38 08/17/24 05:23 Brief Hx & Hospital Course: This is a 19 years old female with no known past medical history come into emergency department because of intractable nausea, vomiting and abdominal pain. Patient started on 08/12/2024. She had not able to keep any food or fluid down since Wednesday. She went to [facility] on Wednesday and was sent home with Zofran. She said her nausea and vomiting did not resolved. Then she go to urgent care on Wednesday, with the same complaint and was also given Zofran and advised to drink water. Her mother brought her to emergency department of [facility] today because she continuing to vomited and had severe abdominal pain. CT scan abdomen pelvis done showed possible bowel thickening possible colitis with no other abnormality. The patient continuing to vomit in the hospital. The UA showed severe dehydration but no bacteria no nitrates no leuko esterase. UTI has been ruled out The patient admitted that she used marijuana every day. GI specialist was consulted. Patient was put on IV antibiotic for possible colitis with Rocephin 1 g IV daily and Flagyl 500 mg IV Q 8 hours. The patient also was put on Zofran 4 mg IV q.4 hours p.r.n. for nausea or vomiting. Dr. Mcelroy see the patient recommend marijuana sensation. 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 Patient verbally understand and stated that she was stop using marijuana. The patient also was started on Protonix 40 mg daily. Today she did not have any nausea or vomiting. She able to keep her food down. She able to ambulate without weakness. I am going to discharge her home. Advised her to follow up with primary care physician 1-2 weeks. Advised her for marijuana sensation. Activity as tolerated. Diet per home diet. Physical exam: HEENT: Normocephalic atraumatic pupils equal react to light and accommodation. Extraocular muscles intact, conjunctiva pink, oropharynx moist, no thrush, no exudate. Lymphatic: No lymphadenopathy Cardiovascular exam: S1, S2 was heard. No murmurs, rubs, gallops Lung: Clear on auscultation bilaterally, no wheeze, rale, rhonchi. GI: Abdominal soft, nondistended, nontenderness, positive bowel sounds. Extremity: No crepitus, cyanosis, edema. Pedal pulses present bilateral. Full range of motion. Skin: Normal turgor, no rash. Psych: Alert, oriented x3. Neurology: No focal deficits, cranial nerve II to XII grossly intact. Condition at Discharge: Stable Final Diagnosis/Problems List Dehydration, severe, UTI rule out. No UTI Gastritis, Hypokalemia, Possible colitis Intractable nausea and vomiting Marijuana abuse Discharge Disposition: Home Discharge Statement: "Patient was advised to return to the ER or call 911 if any headaches, dizziness, shortness of breath, chest pain, abdominal pain, bleeding, fevers, or worsening of medical condition. Patient was counseled about treatment plan, medications, possible side effects, patientverbalized understanding. All questions were answered to the best of my ability. This discharge took greater then 30 minutes in planning, reviewing documentation, counseling the patient, and discussing with other team members." ASSESSMENT ASSESSMENT Assessment Date of Service: Aug 19, 2024 Billing Provider: ROSSY GILMAN MD Common Visit Codes: [id number] DISCH DAY >30min ROSSY GILMAN MD Aug 19, 2024 14:33
[2024-08-19] MEDS ORDERED: PANT40TA2 PO (14:34)
[2024-08-19] MEDS ORDERED: ZOFR4T PO (14:34)
--- NOTE | 2024-08-19 21:31 | DVHPN2 ---
Progress Note - Dictate Date Seen: Aug 19, 2024 (Late entryPatient seen at 9:00 a.m.) Medical Necessity Reason Pt with a Central, PICC or Fol: No Subjective No new complaints Patient is feeling better She stated the IV Protonix helped her symptoms She was able to tolerate some full liquid diet this morning vital signs Vital Sign Date Time Temp Pulse Resp B/P (MAP) Pulse Ox O2 Delivery O2 Flow Rate FiO2 08/19/24 13:00 98.3 94 18 116/74 (88) 99 98.3 08/19/24 07:40 Room Air* 0 21 Total Intake and Output 08/18/24 08/18/24 08/19/24 15:00 23:00 07:00 Intake Total 150 ml 2350 ml 800 ml Balance 150 ml 2350 ml 800 ml objective General Appearance: Alert, Oriented X3, no distress Respiratory: Clear to auscultation, Normal air movement Cardiovascular: Regular rate, Normal S1, Normal S2, No murmurs Abdominal: Other (Diffuse abdominal pain, nausea, and vomiting) Extremities: No clubbing, No cyanosis, No edema Skin: No rashes, No breakdown, No significant lesion Neuro: Normal gait, Normal speech, Strength at 5/5 X4 ext Psych/Mental Status: Mental status NL, Mood NL laboratory and microbiology Laboratory Tests 08/18/24 19:38 08/17/24 05:23 Test 08/18/24 19:38 Range/Units Serum Glucose 80 74-106 mg/dL Problems(with codes): (1) Dehydration, severe (2) Nausea and vomiting (3) Gastroenteritis (4) Acute abdominal pain (5) Hypokalemia Prognosis Assessment plan 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 twice a day Outpatient follow up with me upon discharge for ongoing GI management Plan discussed with: Patient, Other (Nurse) STEPHANIE HARDIN MD Aug 19, 2024 21:31
== END 2024-08-19 16:50 | disposition home or self-care (01) | DRG 641 ==
LOC: EDBD 06:33 → ER 06:33 → OVERFLOW 11:55 → WEST WING 11:55
PROVIDERS: ADMIT Nurse Practitioner Family; ATTEND Internal Medicine
DX: E86.0 Dehydration (principal); N39.0 Urinary tract infection, site not specified; K29.70 Gastritis, unspecified, without bleeding; K52.9 Noninfective gastroenteritis and colitis, unspecified; E87.6 Hypokalemia; Z83.3 Family history of diabetes mellitus; Z79.899 Other long term (current) drug therapy
CPT/HCPCS: 36415; 74176; 80048; 80053; 81001; 83735; 84132; 85025; 96365; 96375; 99291; G0378; J2405; J2470; J3480; J3490